=== PATIENT | female | born 1970 | race Caucasian/White ===

== ENCOUNTER → 2017-03-17 | Outpatient (CLI) | payer BC ==
[~2017-03-17] MED LIST: BCPILLS PO
--- NOTE | 2017-03-17 15:46 | DIAGNOSTIC IMAGING REPORT ---
MRI OF THE LEFT KNEE CLINICAL HISTORY: Left knee pain. COMPARISON STUDY: No priors. TECHNIQUE: MRI of the left knee was performed utilizing proton density, T1, and T2-weighted sequences in the axial, sagittal, coronal planes. IV contrast was not administered for this examination. Note that interpretation is suboptimal without plain film correlate. FINDINGS: Menisci: The medial and lateral menisci are intact. Ligaments: The anterior and posterior cruciate ligaments are intact. The medial and lateral collateral ligaments are within normal limits. There is trace fluid seen along the iliotibial band with significant soft tissue edema between the iliotibial band and the lateral femoral condyle. Extensor mechanism: The extensor mechanism is intact. Hoffa's fat pad is normal in appearance. Articular cartilage and bone: The articular cartilage is intact and well maintained all 3 compartments. Normal marrow signal is preserved of the visualized bony structures. Joint effusion: None Soft tissues: Mild pretibial soft tissue edema is noted. The musculature surrounding the knee joint is normal in bulk and signal intensity. There is a trace popliteal cyst. IMPRESSION: 1. There is no evidence of meniscal or ligamentous injury in the left knee. 2. Findings are consistent with iliotibial band syndrome. Electronically signed by: Will Sandhu M.D. 03/17/2017 3:44 PM Dictated Date/Time: 03/17/2017 3:40 PM
== END | disposition home or self-care (01) ==
LOC: C.MRIBC 14:53
PROVIDERS: ATTEND Orthopaedic Surgery
DX: M25.562 Pain in left knee (principal)